=== PATIENT | male | born 1985 | race Caucasian/White ===

== ENCOUNTER 2018-05-14 12:31 | Emergency (ER) | payer SELFPAY ==
[2018-05-14] MEDS: HYDROCODONE/APAP (5/325) TAB PO (13:22)
[2018-05-14] MEDS: DIPHTH/TET/ACEL PERTUSS (ADULT) 0.5 ML VIAL IM* (13:23)
== END 2018-05-14 14:38 | disposition home or self-care (01) ==
LOC: FTE 12:31
DX: S61.442A Puncture wound with foreign body of left hand, initial encounter (principal); W26.8XXA Contact with other sharp object(s), not elsewhere classified, initial encounter; X58.XXXA Exposure to other specified factors, initial encounter; Y92.9 Unspecified place or not applicable; Z23 Encounter for immunization
CPT/HCPCS: 73130; 73130-LT; 90471; 90715; 99283-25